=== PATIENT | male | born 1980 | race Caucasian/White ===

== ENCOUNTER 2025-04-07 21:55 | Emergency (ER) | payer OTHER, SELFPAY ==
[2025-04-07 22:01] VITALS: BP 146/92
[2025-04-08] VITALS (8 sets, daily range): BP systolic 120–138; BP diastolic 80–88
[2025-04-08] MEDS: DUONEB 3 ML INH ×2 (03:49→05:27)
--- NOTE | 2025-04-08 04:36 | ED.GENMED ---
History of Present Illness
<Jordyn Hernández PA-C - Last Filed: 04/08/25 11:05>
General
Chief Complaint: Breathing Problem
Source: patient
Exam Limitations: none
Time Seen by Provider: 04/08/25 04:18
Nursing documentation reviewed up to this point in time: agreed with
History of Present Illness
History of Present Illness:
34 y/o male with a past medical history of severe seasonal, allergies, and asthma as a child presents to the emergency department today with concerns of shortness of breath and wheezing. Patient reports that for the past year, his allergies have
become more severe and started to take allergy medication daily. He reports that the past few weeks it�s gotten much worse and he feels that after being exposed to his daughter�s guinea pigs, he developed some chest tightness and wheezing. Patient
states that he uses out inhaler at home which did not help. He had an episode of throat itching earlier, but no difficulty swallowing. He has any sick contacts. He denies any fevers or chills. Normally his albuterol inhaler works for symptoms, but
this time it was not helping at all. he knows any rashes. He is not having an EpiPen at home. He has never followed with an medical program specialist before.
Review of Systems
<Jordyn Hernández PA-C - Last Filed: 04/08/25 11:05>
Review of Systems
All Other Systems: ROS reviewed and negative except as documented in HPI and ROS
Phy Exam
<Jordyn Hernández PA-C - Last Filed: 04/08/25 11:05>
Physical Exam
Physical Exam:
General: Patient is well appearing and in no acute distress; non-toxic
Skin: Warm and dry, no rashes or lesions
Head: Normocephalic, atraumatic
Eyes: Sclera non-icteric. EOMs intact.
Thraot: No uvular edema.
Cardiac: Regular rate and rhythm, no murmurs
Pulm: Increased respiratory rate. Mild hoarseness to voice noted. Diffuse wheezing
Neuro: CN II-XII intact, no focal neurologic deficits.
Psychiatric: Appropriate mood and affect.
Scores
<Jordyn Hernández PA-C - Last Filed: 04/08/25 11:05>
Heart Failure Risk
Heart Failure Risk Score: Not Applicable
Course
<Jordyn Hernández PA-C - Last Filed: 04/08/25 11:05>
Orders/Labs/Results
Orders:
Orders
04/07/25 22:04
EKG [Electrocardiogram (*1)] Urgent
Reason for Study: Shortness of Breath
EKG- Treatment ONCE
04/08/25 00:00
CR Chest - 2 Views Urgent
Reason For Exam: sob
04/08/25 03:47
Ipratropium/Albuterol Sulfate [Duoneb] 3 ml .ROUTE .STK-MED ONE
04/08/25 03:48
Ipratropium/Albuterol Sulfate [Duoneb] 3 ml INH R NOW ONE
04/08/25 04:43
Dexamethasone Sod Phosphate [Decadron] 10 mg IV NOW STA
Diphenhydramine [Benadryl] 12.5 mg IV NOW STA
Famotidine [Pepcid] 20 mg IV NOW STA
Ipratropium/Albuterol Sulfate [Duoneb] 3 ml INH R NOW ONE
04/08/25 05:14
Complete Blood Count/With Diff Urgent
Comprehensive Metabolic Panel Urgent
Abnormal Lab Results
04/08/25
05:14
Absolute Lymphs (auto) 1.1 L 10^3/uL
(1.2-3.4)
Absolute Eos (auto) 1.1 H 10^3/uL
(0-0.7)
Lymphocytes % 18.8 L %
(20.5-51.1)
Eosinophils % 18.8 H %
(0-6)
Chloride 111 H mmol/L
(98-107)
Glucose 111 H mg/dl
(70-99)
04/08/25 05:14
04/08/25 05:14
Vital Signs
Initial and Last Documented VS:
Initial Vital Signs
Temp Pulse Resp BP Pulse Ox
98.5 F 70 20 146/92 95
04/07/25 22:01 04/07/25 22:01 04/07/25 22:01 04/07/25 22:01 04/07/25 22:01
Last Documented Vital Signs
Temp Pulse Resp BP Pulse Ox
98.5 F 74 16 125/87 95
04/07/25 22:01 04/08/25 07:00 04/08/25 07:00 04/08/25 07:00 04/08/25 07:00
<Goyo Jackson, DO - Last Filed: 04/08/25 06:16>
Orders/Labs/Results
Orders:
Orders
04/07/25 22:04
EKG [Electrocardiogram (*1)] Urgent
Reason for Study: Shortness of Breath
EKG- Treatment ONCE
04/08/25 00:00
CR Chest - 2 Views Urgent
Reason For Exam: sob
04/08/25 03:47
Ipratropium/Albuterol Sulfate [Duoneb] 3 ml .ROUTE .STK-MED ONE
04/08/25 03:48
Ipratropium/Albuterol Sulfate [Duoneb] 3 ml INH R NOW ONE
04/08/25 04:43
Dexamethasone Sod Phosphate [Decadron] 10 mg IV NOW STA
Diphenhydramine [Benadryl] 12.5 mg IV NOW STA
Famotidine [Pepcid] 20 mg IV NOW STA
Ipratropium/Albuterol Sulfate [Duoneb] 3 ml INH R NOW ONE
04/08/25 05:14
Complete Blood Count/With Diff Urgent
Comprehensive Metabolic Panel Urgent
Abnormal Lab Results
04/08/25
05:14
Absolute Lymphs (auto) 1.1 L 10^3/uL
(1.2-3.4)
Absolute Eos (auto) 1.1 H 10^3/uL
(0-0.7)
Lymphocytes % 18.8 L %
(20.5-51.1)
Eosinophils % 18.8 H %
(0-6)
Chloride 111 H mmol/L
(98-107)
Glucose 111 H mg/dl
(70-99)
04/08/25 05:14
04/08/25 05:14
Vital Signs
Initial and Last Documented VS:
Initial Vital Signs
Temp Pulse Resp BP Pulse Ox
98.5 F 70 20 146/92 95
04/07/25 22:01 04/07/25 22:01 04/07/25 22:01 04/07/25 22:01 04/07/25 22:01
Last Documented Vital Signs
Temp Pulse Resp BP Pulse Ox
98.5 F 74 16 125/87 95
04/07/25 22:01 04/08/25 07:00 04/08/25 07:00 04/08/25 07:00 04/08/25 07:00
Ivalt;Jordyn Hernández PA-C - Last Filed: 04/08/25 11:05>
MDM/Problems Addressed
Differential Diagnosis Includes:
ddx include allergic reaction, allergic rhinitis, asthma exacerbation, airway foreign body, pneumonia
MDM/Problems Addressed:
34 y/o male with a past medical history of severe seasonal, allergies, and asthma as a child presents to the emergency department today with concerns of shortness of breath and wheezing. Asthma as a child. Known allergic rhinitis. Usual asthma
inhaler not helping. Symptoms got worse after guinea pig exposure. On PE, he has rapid breathing diffuse wheezing. Improved with nebs and allergy medication. Referral given for medical program specialist, epi pen prescription given, prednisone taper. Pt stable for
discharge
<Jordyn Hernández PA-C - Last Filed: 04/08/25 11:05>
*Critical Care Note
Total Time (30-74mins, 75-104mins- exclusive of procedures): Not Applicable
ED Attending Note
<Jordyn Hernández PA-C - Last Filed: 04/08/25 11:05>
-
Portions of this chart may have been created with voice recognition software.� Occasional wrong word or��sound alike� substitutions may have occurred due to the inherent limitations of voice recognition software.
<Goyo Jackson DO - Last Filed: 04/08/25 06:16>
ED Attending Note
Patient seen and examined by attending physician: Yes
ED Attending Note:
44-year-old male presents to the emergency department with difficulty breathing and allergic reaction. He feels that he might be allergic to his daughter's guinea pigs. Tonight he developed some shortness of breath. He received a breathing
treatment and states that he felt much better. Patient was seen in conjunction with the [facility], I have reviewed and agree with her history and treatment plan. On my independent physical exam patient is awake, alert, and oriented x 3 in minimal to no
acute distress. Uvula is midline. Oropharynx is clear. Dentition is intact. Heart is regular rate and rhythm. Lungs clear to auscultation bilaterally without wheezes rales or rhonchi present. Patient did receive an hour-long breathing
treatment just prior. Patient states he feels much better and wishes to be discharged to home. Will prescribe EpiPen, Benadryl, prednisone. He does have albuterol at home. Urged improved condition.
Discharge Plan
Departure
Patient Disposition: Home (Routine Discharge)
Date of Disposition: 04/08/25
Time of Disposition: 06:14
Patient with high blood pressure during this ER visit?: Yes
Condition: Good
Discharge Problem:
Allergic reaction
Instructions: Shortness of Breath (Dyspnea) (DC), Allergic reaction - ED discharge instructions, BLOOD PRESSURE
Prescriptions:
New
prednisone 10 mg Tablet
See Rx Instructions .ROUTE .COMPLEX Qty: 30 0RF
Rx Instructions:
Take By Mouth:
40 mg daily x3 days, 30 mg daily x3 days,
20 mg daily x3 days, 10 mg daily x3 days.
epinephrine [EpiPen] 0.3 mg/0.3 mL auto-injector
0.3 mg IM .STAT PRN (Reason: anaphylaxis) Qty: 1 0RF
Referrals:
Julieth Lynn MD [Consulting Staff] - Call in 1-3 days for appt
PRIVATE,PHYSICIAN [Family Provider] -
Activity Restrictions/Additional Instructions:
You can continue to take Benadryl as needed over the counter. You can continue to use your inhaler as needed. Prednisone taper has been sent to your pharmacy. Please follow instructions for dosing. We have also sent an EpiPen to your pharmacy if
needed.
We also provided you with the name of an medical program specialist. Please call attached number to schedule appointment for follow-up. Your CBC and CMP blood work are unremarkable. Your chest x-ray shows no evidence of acute cardiopulmonary abnormality.
PLEASE RETURN EMERGENCY DEPARTMENT SHOULD YOU DEVELOP CHEST PAIN, SHORTNESS OF BREATH, ACUTE WORSENING OF YOUR SYMPTOMS, DIFFICULTY SWALLOWING, OR ANY OTHER SIGNS OR SYMPTOMS REASON YOU
Interventions
Interventions:
*Risk Screen - Suicide Last Done: 04/07/25 22:01
*General Assessment Last Done: 04/07/25 22:01
*Neglect/Abuse Screening Last Done: 04/07/25 22:01
*ED- Fall Risk Assessment Last Done: 04/07/25 22:01
*ED COVID-19 Vaccine History Last Done: 04/07/25 22:01
*Nursing Disposition Last Done: 04/08/25 07:00
ED- Cardiac Assessment Last Done: 04/08/25 03:45
ED- Pulmonary Assessment Last Done: 04/08/25 03:45
Discharge Date and Time
Discharge Date/Time: 04/08/25 07:00
Print Language: MALTESE
[2025-04-08] MEDS: BENADRYL 12.5 MG IV (05:16)
[2025-04-08] MEDS: DECADRON 10 MG IV (05:20)
[2025-04-08] MEDS: PEPCID 20 MG IV (05:22)
[2025-04-08 05:46] LABS: % Basophils 1.2 % (0-2); % Eosinophils 18.8 % (0-6); % Immature Granulocytes 0.2 % (0-0.5); % Lymphocytes 18.8 % (20.5-51.1); % Monocytes 8.1 % (1.7-9.3); % Neutrophils 52.9 % (42.2-75.2); Absolute Basophils 0.1 10^3/uL (0-0.2); Absolute Eosinophils 1.1 10^3/uL (0-0.7); Absolute Lymphocytes 1.1 10^3/uL (1.2-3.4); Absolute Monocytes 0.5 10^3/uL (0.1-0.6); Absolute Neutrophils 3.2 10^3/uL (1.4-6.5); Hematocrit 41.3 % (39.0-52.0); Hemoglobin 15.2 g/dL (13.0-18.0); Mean Corp Hgb Conc. 36.8 g/dL (33.0-37.0); Mean Corpuscular Hgb 30.8 pg (27.0-31.0); Mean Corpuscular Volume 83.8 fL (80.0-94.0); Mean Platelet Volume 9.6 fL (7.4-10.4); Nucleated Red Blood Cells % 0 % (-); Platelet Count 183 10^3/uL (130-400); Red Blood Cell Count 4.93 10^6/uL (4.70-6.10)
[2025-04-08 06:02] LABS: ALT (SGPT) 33 U/L (0-50); AST (SGOT) 22 U/L (17-59); Albumin 4.6 g/dl (3.5-5.0); Alkaline Phosphatase 71 U/L (38-126); Blood Urea Nitrogen 12 mg/dl (9-20); Calcium 9.8 mg/dl (8.4-10.2); Carbon Dioxide 22 mmol/L (22-30); Chloride 111 mmol/L (98-107); Glucose 111 mg/dl (70-99); Potassium 3.9 mmol/L (3.5-5.1); Sodium 141 mmol/L (135-145); Total Bilirubin 0.9 mg/dl (0.2-1.3); Total Protein 6.8 g/dl (6.3-8.2); eGFR > 60.00
== END 2025-04-08 07:00 | disposition home or self-care (01) ==
LOC: EMR 21:55
PROVIDERS: Physician Assistant; EMERGENCY PHYSICIAN Student in an Organized Health Care Education/Training Program
DX: J30.9 Allergic rhinitis, unspecified (principal); Z87.09 Personal history of other diseases of the respiratory system
CPT/HCPCS: 94640; 96374; 96375; 99284; 71046; 80053; 85025; 93005